=== PATIENT | male | born 1955 | race Caucasian/White ===

== ENCOUNTER 2017-09-12 17:41 | Inpatient (IN) | payer MEDICARE, BC, OTHER ==
[2017-09-12 18:07] LABS: #Basophils 0.1 thou/uL (0.0-0.2); #Eosinphils 0.1 thou/uL (0.0-0.7); #Lymphocytes 1.4 thou/uL (1.20-3.40); #Monocytes 0.9 thou/uL (0.11-0.59); %Basophils 0.5 % (0.0-1.0); %Eosinophils 0.8 % (0.0-10.0); %Lymphocytes 14.7 % (21.0-51.0); %Monocytes 9.2 % (0.0-10.0); %Neutrophils 74.8 % (42.0-75.0); Hemoglobin 17.2 g/dL (14.0-18.0); Mean Corpuscular HGB CONC 32.3 g/dL (32.0-36.0); Mean Corpuscular Hemoglobin 31.7 pg (27.0-31.0); Mean Platelet Volume 9.6 fL (7.4-10.4); Platelet Count 197 thou/uL (130-400); RBC Distribution Width 12.3 % (11.5-14.5); Red Blood Cell (RBC) Count 5.42 mill/uL (4.70-6.10); White Blood Cell (WBC) Count 9.4 thou/uL (4.8-10.8)
[2017-09-12 18:27] LABS: ALT (SGPT) 41 U/L (8-55); AST (SGOT) 28 U/L (5-34); Albumin 4.2 g/dL (3.4-4.8); Alkaline Phosphatase 83 U/L (40-150); Anion Gap 16 mmol/L (10-20); BUN (Urea Nitrogen) 25 mg/dL (8.4-25.7); Calc. Creatinine Clearance 0 mL/min (70-130); Calcium 9.9 mg/dL (7.8-10.44); Carbon Dioxide 32 mmol/L (23-31); Chloride 100 mmol/L (98-107); Estimated GFR-MDRD Greater than 90; Globulin 3.6 g/dL (2.4-3.5); Glucose 154 mg/dL (80-115); Potassium 4.1 mmol/L (3.5-5.1); Protein, Total 7.8 g/dL (5.8-8.1); Sodium 144 mmol/L (136-145)
[2017-09-12 18:52] LABS: Actual Bicarbonate (HCO3a) 30.8 mEq/L (22-26); Base Excess (BEa) 5.2 mEq/L (0 (+/-) 2.5); CO2 Tension 48.5 mmHg (35.0-45.0); O2 Tension (PaO2) 89.9 mmHg (80.0-100.0); pH, Arterial 7.42 (7.35-7.45)
[2017-09-12 18:53] LABS: Analyzer IN Cardio ER; Calcium, Ionized 1.2 mmol/L (1.12-1.30); Hematocrit-ABG 46.5 % (42.0-52.0); Puncture Site RRA
[2017-09-12 18:54] LABS: ALV-art Gradient 47.715 (0-20)
[2017-09-12] MEDS ORDERED: Acetaminophen 325 MG TAB PO PRN (22:13)
[2017-09-12] MEDS: Sodium Chloride 0.9% 1,000 ML IV SCH (23:14)
[2017-09-12 23:50] LABS: Bilirubin Negative (Negative); Blood, Urine Negative (Negative); Clarity CLEAR (Clear); Glucose, Urine (Dipstick) Negative (Negative); Leukocyte Negative (Negative); Nitrite Negative (Negative); Protein, Urine (Dipstick) Negative (Neg-Trace); Specific Gravity, Urine 1.016 (1.002-1.036); pH, Urine 6.5 (5.0-9.0)
[2017-09-12 23:52] LABS: Bacteria/HPF None Seen HPF (None Seen); Hyaline Casts/LPF 7-10 HYALINE CAST LPF (0-3 Hyaline); Pathc Cast-AUWi Flag 2.18 (0-2.49); RBC/HPF 0-3 HPF (0-3); Squamous Epithelial 0-3 HPF (0-3); WBC/HPF 0-3 HPF (0-3)
[2017-09-13] MEDS ORDERED: Bisacodyl 10 MG SUPP PR PRN (00:12)
--- NOTE | 2017-09-13 00:37 | HP ---
DATE OF ADMISSION: 09/13/2017 Patient was seen and examined on 09/13/2017 CHIEF COMPLAINT: Generalized weakness, dizziness, and shortness of breath. HISTORY OF PRESENT ILLNESS: Patient is a 62-year-old male with ALS was brought into the emergency ro om by his family with above complaints. Patient currently follows Dr. Sam Carpio. His neurologist is out of town. He also follows Dr. Cartagena who recently started him on metoprolol succinate 25 m g daily for palpitations. Event monitor was also placed. Patient currently lives at home with his family. He is wheelchair bound. He is currently on PEG tub e feeding. He has been recently using noninvasive positive pressure ventilation due to decreased kinza g capacity. The patient was brought into the emergency room with shortness of breath along with generalized weakn ess, lightheadedness, dizziness. His blood pressure at home was in 80s. There was no fever, chills, dysuria, hematuria, urgency, nausea, vomiting, diarrhea reported. He is tolerating PEG tube feeding . He is urinating well. In the emergency room, his initial vital signs showed temperature of 98.1 with pulse rate of 106, blo od pressure of 86/64, respiration of 28 with O2 saturation 97% on 1 liter nasal cannula. He was star amye on noninvasive positive pressure ventilation. He received 1 liter IV fluid in the emergency room . PAST MEDICAL HISTORY: 1. Amyotrophic lateral sclerosis. He is currently on riluzole. 2. Hypertension. 3. Palpitations recently started on metoprolol. 4. Seasonal allergies. 5. Psoriasis. 6. History of obstructive sleep apnea in the remote past. 7. History of renal calculi. PAST SURGICAL HISTORY: 1. Nasal surgery by Dr. Pedraza. 2. Neck surgery. 3. Colonoscopy. 4. PEG tube placement. ALLERGIES: Patient is allergic to SULFA. HOME MEDICATIONS: Patient is currently on Lexapro, riluzole, nebulizer, and baclofen as needed. Exa ct dosage is to be confirmed. SOCIAL HISTORY: Patient currently lives at home. He is retired. He is FULL CODE. DPOA is the spou se. FAMILY HISTORY: Father with hypertension and cancer. Mother with hypertension and blood clots. Hyp ertension in several family members. REVIEW OF SYSTEMS: The following complete review of systems was negative, unless otherwise mentioned in the HPI or below: Constitutional: Weight loss or gain, ability to conduct usual activities. Sk in: Rash, itching. Eyes: Double vision, pain. ENT/Mouth: Nose bleeding, neck stiffness, pain, te nderness. Cardiovascular: Palpitations, dyspnea on exertion, orthopnea. Respiratory: Shortness of breath, wheezing, cough, hemoptysis, fever, or night sweats. Gastrointestinal: Poor appetite, abdo miguel pain, heartburn, nausea, vomiting, constipation, or diarrhea. Genitourinary: Urgency, frequen cy, dysuria, nocturia. Musculoskeletal: Pain, swelling. Neurologic/Psychiatric: Anxiety, depressi on. Allergy/Immunologic: Skin rash, bleeding tendency. PHYSICAL EXAMINATION: VITAL SIGNS: As discussed above. His blood pressure improved to systolic 102 after IV fluids. GENERAL: Patient currently on noninvasive positive pressure ventilation. HEENT: Head atraumatic, normocephalic. Sclerae anicteric. Moist mucous membrane, no oral lesion. NECK: Supple, no JVD appreciated. No carotid bruit. LUNGS: Showed diminished air entry at bases, otherwise no rhonchi, wheezing, or rales. Lungs were s ymmetrical. HEART: S1, S2 present. Regular, tachycardic. No rubs or gallops appreciated. ABDOMEN: Soft. PEG tube noted. No rebound, guarding, no costovertebral angle tenderness. No eryth sarai around the PEG tube site. EXTREMITIES: No edema or calf tenderness. NEUROLOGIC: At baseline, no new focal deficit. PSYCHIATRIC: Alert, awake, oriented x3. SKIN: Warm and dry. LYMPH NODES: No palpable lymph nodes in the neck. LABORATORY FINDINGS: 1. EKG by my review showed sinus rhythm with lot of artifacts. 2. CBC showed WBC 9.4 with hemoglobin 17.2, platelet count 197. ABG showed pH 7.42 with pCO2 of 48. 5, pO2 of 89.2 with bicarbonate 31 on noninvasive positive pressure ventilation. 3. Chemistries showed sodium 144, potassium 4.1, chloride 100, bicarbonate 32, BUN 25, creatinine 0. 8. 4. Urinalysis showed hyaline cast. 5. Chest x-ray was not done. 6. Blood cultures have been sent. IMPRESSION: 1. Generalized weakness with lightheadedness, shortness of breath with hypotension. Please note nanci t patient was recently started on metoprolol due to palpitations. He also appears to be dehydrated w ith hyaline cast in the urinalysis. His blood pressure improved with IV hydration. We will continue IV fluids. He does not appear to be septic at this time. We will continue to monitor. 2. Acute hypoxic respiratory failure due to amyotrophic lateral sclerosis. We will continue noninva sive positive pressure ventilation. We will consult critical care, Dr. Gtz. 3. History of amyotrophic lateral sclerosis with questionable worsening. Dr. Agee has been notified from the emergency room. We will resume his home medications. 4. Depression. Patient denies any suicidal ideation. We will continue Lexapro. Plan of care was discussed with the patient and the family at the bedside, they stated understanding.
[2017-09-13 05:31] LABS: Anion Gap 10 mmol/L (10-20); BUN (Urea Nitrogen) 17 mg/dL (8.4-25.7); Calc. Creatinine Clearance 127 mL/min (70-130); Carbon Dioxide 34 mmol/L (23-31); Chloride 104 mmol/L (98-107); Estimated GFR-MDRD Greater than 90; Glucose 98 mg/dL (80-115); Magnesium 2.2 mg/dL (1.6-2.6); Potassium 3.6 mmol/L (3.5-5.1); Sodium 144 mmol/L (136-145); Troponin I 0.011 ng/mL (< 0.028)
[2017-09-13 05:34] LABS: Phosphorus 3.5 mg/dL (2.3-4.7)
[2017-09-13] MEDS: Famotidine 20 MG TAB PER TUBE SCH ×2 (08:26→20:28)
--- NOTE | 2017-09-13 09:36 | PDOC.PN ---
- Subjective Encounter Start Date: 09/13/17 Encounter Start Time: 09:34 Subjective: better, weakness improved, off BIPAP - Objective Resuscitation Status: Resuscitation Status FULL:Full Resuscitation MAR Reviewed: Yes Vital Signs & Weight: Vital Signs (12 hours) Temp Pulse Resp BP Pulse Ox 09/13/17 08:00 98.5 F 73 22 H 98 09/13/17 07:57 98.5 F 73 22 H 139/76 98 09/13/17 03:51 98.4 F 82 32 H 119/86 100 09/13/17 03:39 77 09/13/17 00:17 70 09/12/17 23:50 98.0 F 72 19 119/78 100 09/12/17 23:20 97.3 F L 75 24 H 137/83 97 09/12/17 22:51 98.0 F 70 22 H 97 Weight Weight 154 lb 11.2 oz I&O: 09/12/17 09/13/17 09/14/17 06:59 06:59 06:59 Intake Total 640 Output Total 650 Balance -10 Result Diagrams: 09/12/17 17:55 09/13/17 04:19 Phys Exam - Physical Examination Neck: no JVD Respiratory: clear to auscultation bilateral Cardiovascular: no significant murmur Gastrointestinal: soft, non-tender, positive bowel sounds Musculoskeletal: no edema Dx/Plan (1) Hypotension Status: Resolved Qualifiers: Hypotension type: unspecified hypotension type Qualified Code(s): I95.9 - Hypotension, unspecified (2) ALS (amyotrophic lateral sclerosis) Code(s): G12.21 - AMYOTROPHIC LATERAL SCLEROSIS Status: Acute (3) Hypercapnia Code(s): R06.89 - OTHER ABNORMALITIES OF BREATHING Status: Acute (4) HTN (hypertension) Code(s): I10 - ESSENTIAL (PRIMARY) HYPERTENSION Status: Acute Qualifiers: Hypertension type: essential hypertension Qualified Code(s): I10 - Essential (primary) hypertension - Plan cont off metoprolol -: bipap prn -: discussed with Dr Pierce * .
[2017-09-13] MEDS: Sodium Chloride 0.9% 1,000 ML IV SCH (14:10)
[2017-09-13 15:22] VITALS: BMI 20.9
--- NOTE | 2017-09-13 16:06 | CON ---
DATE OF CONSULTATION: 09/13/2017 SERVICE: Pulmonary Medicine. REASON FOR CONSULTATION: Amyotrophic lateral sclerosis. HISTORY OF PRESENT ILLNESS: The patient is a 62-year-old white male with past medical history significant for ALS and chronic respiratory failure. He follows with Kris in [facility]. He is in an ALS clinic. He has been set up with a home Trilogy ventilator. It is not quite certain what the settings are. He does have a battery pack, but at this point he has never really needed it outside when he was sleeping. He presented to the hospital after a dose of metoprolol was started in the outpatient setting. He started having some marginal blood pressures, dizziness, and shortness of breath. He presented to the Emergency Department, he was then subsequently tucked into the ICU after initial diagnostic evaluation really did not come up with much on BiPAP. He has been off of BiPAP all day and indicates to me that he has essentially returned to his usual state of health. He denies any current fevers , chills, nausea or vomiting. Otherwise, he was in his usual state of health. PAST MEDICAL HISTORY: 1. Amyotrophic lateral sclerosis. 2. Hypertension. 3. Psoriasis. 4. Allergic rhinitis. 5. Obstructive sleep apnea, status post ENT surgery in 2006. 6. History of nephrolithiasis. PAST SURGICAL HISTORY: 1. Nasal surgery. 2. Neck surgery. 3. Colonoscopy. 4. PEG tube placement. ALLERGIES: SULFA. MEDICATIONS: List of his inpatient medications were reviewed, but no updates were made at this time. SOCIAL HISTORY: Negative for alcohol, tobacco or illicit drug use. He is currently retired. He remains a FULL CODE. He denies exposure to chemicals, dust asbestos or tuberculosis. FAMILY HISTORY: Noncontributory. REVIEW OF SYSTEMS: General, head, ears, eyes, nose, throat, cardiovascular, respiratory, GI, , musculoskeletal, neurologic and skin is negative except as mentioned in the HPI. ALLERGIES: No known drug allergies. PHYSICAL EXAMINATION: VITAL SIGNS: Afebrile, pulse 81, blood pressure 164/85, respirations 22, saturation 92% on room air. GENERAL: The patient is awake and alert, no apparent distress. LUNGS: Decent air entry. There is no prolonged expiratory phase, wheezing, rhonchi or crackles. HEART: Normal rate and regular. ABDOMEN: Soft, nontender, and nondistended. Bowel sounds are positive. MUSCULOSKELETAL: No cyanosis or clubbing. No pitting in the bilateral lower extremities. NEUROLOGIC: Grossly nonfocal. LABORATORY DATA: WBC is 9.4, hemoglobin 17.2, and platelets 197,000. PH 7.42, pCO2 48, and pO2 90. Basic metabolic profile, magnesium, and phosphorus are unremarkable. Bicarbonate 34. Troponin negative x1. Liver function studies are also unremarkable. Urinalysis is negative. Blood cultures x2 are unremarkable. ASSESSMENT: 1. Amyotrophic lateral sclerosis. 2. Chronic hypercapnic respiratory failure. 3. Hypotension, resolved with holding metoprolol. PLAN: The patient can be discharged today or tomorrow based on their preference. I would like for them to call Kris right now and get an appointment with Neurology sometime this week or next week. I would also like for them to discuss the issues he has been having with respiratory therapy. He is having a hard time using his BiPAP machine because of aerophagia. We discussed multiple strategies for handling this. He can get a suction catheter that goes into the PEG tube to vent it at night. He can also decrease pressures by dialing in smaller tidal volume. I do not know what his current settings are on his machine, but he does have good resources at home that will allow him to trouble shoot this issue. He has actually has not discussed this with them to date. If he cannot get assistance from his established contacts, we can have him return to clinic to see me in the outpatient setting. Pulmonary or Critical Care will continue to follow along while he remains in house, but from a respiratory perspective, he is stable for transition out of the hospital. 70 minutes have been devoted to this patient in various activities. I personally reviewed all imaging studies and laboratory data noted within this document. For fifty percent of this time, I was interacting with the patient at the bedside or coordinating care with the care team. For the remainder of the time I was immediately available to the patient in the hospital unit. BRAD
[2017-09-13] MEDS ORDERED: cloNIDine 0.1 MG TAB PO PRN (18:24)
[2017-09-13] MEDS ORDERED: RILUZOLE 50 MG PO SCH (21:00)
[2017-09-13] MEDS ORDERED: Enoxaparin Sodium 40 MG/0.4 ML SYRINGE SC SCH (21:00)
--- NOTE | 2017-09-13 23:34 | CON ---
DATE OF CONSULTATION: 09/14/2017 REFERRING PHYSICIAN: Dr. Stanley Chowdhury. REASON FOR CONSULTATION: Amyotrophic lateral sclerosis. HISTORY OF PRESENT ILLNESS: Mr. Rodriguez is a pleasant 62-year-old male who has been cons ulted for evaluation of ALS. History is obtained from patient and his who was present at [facility]. Patient reports that he has a history of ALS that was diagnosed in 2014. He has been followed by neurologist in [place], [place]. He has gradually gotten worse over time and requires BiPAP sondra e for breathing support. He also has a feeding tube, which was placed in 2014 and over the past one year, he has to use feeding tube 100%. He reports that recently his cleaner housekeeping, Dr. Cartagena had started him on metoprolol 25 mg daily for SVT. He had presented to the emergency room yesterday afte r a complaint of fairly started having dizziness, lightheadedness, and increasing difficulty with yanet athing. On arrival to the emergency room, his blood pressure was noted to be very low as well as he had an increased respiration with low at 20% FVC. For this reason, he was being admitted for further treatment. I am being asked to further provide recommendations for patient with ALS. PAST MEDICAL HISTORY: Significant for ALS on riluzole, hypertension, palpitations, psoriasis, kidney stones. PAST SURGICAL HISTORY: Significant for nasal surgery, neck surgery, colonoscopy, PEG tube placement. CURRENT MEDICATIONS: Please review MAR. ALLERGIES: Include SULFA DRUGS. SOCIAL HISTORY: He is retired. He does not smoke or drink cigarettes, drink alcohol or use illicit drugs. He is . FAMILY HISTORY: Significant for father and mother with hypertension. REVIEW OF SYSTEMS: As mentioned above in the HPI is negative. PHYSICAL EXAMINATION: VITAL SIGNS: Blood pressure of 175/92, pulse of 76, temperature of 98.1, respirations are 20, O2 sat s of 94% on 2-liter nasal cannula. GENERAL: Cachectic appearing male in no apparent distress. RESPIRATORY: Clear to auscultation bilaterally. CARDIOVASCULAR: Regular rate and rhythm. NEUROLOGIC: Mental status: Patient is awake, alert, oriented x3. Speech and language: Labored spe ech with mild dysarthria. Cranial nerves: Pupils are 3 mm and reactive. Visual min are intact. Extraocular muscles are intact. No nystagmus is noted. Face is symmetric. Tongue and uvula are mi dline. There is a tongue fasciculations noted. Motor exam showed significant wasting of both upper and lower extremity muscles. He has 0/5 strength in both upper extremities proximally and 2/5 streng th in the distal hand muscles. His strength in both lower extremities is 4/5. LABORATORY DATA: Reviewed, which included CBC, CMP, ABG which is significant for bicarbonate of 34. His ABG showed pH of 7.42, pCO2 of 48.5, pO2 of 89.9, bicarbonate of 30.8. IMPRESSION: 1. Amyotrophic lateral sclerosis. 2. Hypertension, likely medication-induced. ASSESSMENT AND PLAN: Mr. Rodriguez is a pleasant 62-year-old male with history of amyotrop hic lateral sclerosis presented with the episodes of dizziness, lightheadedness, and increasing diffi culty with breathing. His blood pressure was noted to be very low on arrival to the emergency room, which is likely medication-induced. This is probably the cause for his lightheadedness and dizziness . His breathing has worsened over the past few months, according to him, which is usually the progre ssion of the amyotrophic lateral sclerosis. I have discussed with the patient that unfortunately the only available options are CPAP machine or tracheostomy. I have explained that the tracheostomy may help with breathing for some time, but eventually amyotrophic lateral sclerosis thus tends to progre ss and affect the breathing without much help from the tracheostomy. I have advised him that he need s to discuss this with his honey processor as well as a neurologist further and discussed with his fami ly to see whether he should proceed with the tracheostomy. There is no further neurological workup n eeded from my standpoint. Thank you for consultation.
[2017-09-14 08:05] VITALS: BP 162/102; TEMP 98
[2017-09-14] MEDS: Famotidine 20 MG TAB PER TUBE SCH (08:29)
[2017-09-14] MEDS ORDERED: RILUZOLE 50 MG PO SCH (09:00)
[2017-09-14] MEDS ORDERED: Escitalopram Oxalate 10 mg Tablet PO SCH (09:00)
--- NOTE | 2017-09-14 09:23 | DIS ---
TRANSFER OF CARE NOTE PRIMARY CARE PROVIDER: Dr. Sam Carpio FINAL DIAGNOSES: 1. Acute respiratory failure with hypoxia. 2. Hypotension, resolved. 3. Amyotrophic lateral sclerosis. 4. Hypertension. 5. Hypercapnia. DISCHARGE MEDICATIONS: Same as home medicines except metoprolol has been held, citalopram 10 mg a da y, Riluzole 50 mg twice a day, simethicone 60 mg p.o. daily. ALLERGIES: TRIMETHOPRIM, SULFA, POLYMYXIN B, BACITRACIN. CODE STATUS: FULL. PENDING AT THE TIME OF DISCHARGE: Nothing. HOSPITAL COURSE: The patient admitted through [facility] with generalized weakn ess, dizziness, shortness of breath. In the emergency room, he was found to have blood pressure 80/6 0 was given IV fluids. He had recently been put on metoprolol for palpitations. He was seen in cons ultation by Dr. Shiraz Pierce, Pulmonology, Dr. Minerva Agee. Dr. Pierce agreed he was stable for di scharge at this time after stopping the metoprolol and receiving fluids. Dr. Agee recommended the de tient discuss need for a tracheostomy. PERTINENT LABORATORY: During his hospital stay, comp metabolic profile positive only for a CO2 of 32 and 34, arterial blood gas showed a normal pH of 742 with CO2 retention of 48.5. CBC was normal exc ept for a mild macrocytosis. Urine was clear. PHYSICAL EXAMINATION: CHEST: Clear to auscultation and percussion. HEART: Regular rate and rhythm. VITAL SIGNS: Blood pressure ranges from 139/76 to somewhat higher. His O2 saturation is currently 9 5 on room air when he is awake. It drops, we will need to sleep, he sleeps with BiPAP. PROCEDURES: No procedures done. He is being discharged for follow up with his PCP and his neurologist at [facility].
== END 2017-09-14 12:49 | disposition home or self-care (01) | DRG 189 ==
LOC: ERS 17:41 → IMCU/EMU 20:18
PROVIDERS: ADMIT Internal Medicine; ATTEND Internal Medicine
DX: J96.01 Acute respiratory failure with hypoxia (principal); G12.21 Amyotrophic lateral sclerosis; J96.12 Chronic respiratory failure with hypercapnia; Z93.1 Gastrostomy status; I10 Essential (primary) hypertension; F32.9 Major depressive disorder, single episode, unspecified; I95.2 Hypotension due to drugs; T44.7X5A Adverse effect of beta-adrenoreceptor antagonists, initial encounter; F45.8 Other somatoform disorders
CPT/HCPCS: 36415; 80048; 80053; 81001; 82805; 83735; 84100; 84484; 85025; 87040; 93005; 94660; 94760; 96360

== ENCOUNTER 2017-09-17 15:05 | Emergency (ER) | payer MEDICARE, BC, OTHER | END 2017-09-17 15:25 | disposition home or self-care (01) | LOC: SCSER 15:05 | DX: L03.114 Cellulitis of left upper limb (principal); L03.113 Cellulitis of right upper limb ==

== ENCOUNTER 2017-10-09 13:45 | Outpatient (CLI) | payer MEDICARE, BC, OTHER | END 2017-10-09 13:46 | disposition home or self-care (01) | LOC: BICRAD 13:45 | PROVIDERS: ATTEND Internal Medicine Gastroenterology | DX: R14.0 Abdominal distension (gaseous) (principal); R19.8 Other specified symptoms and signs involving the digestive system and abdomen | CPT/HCPCS: 74022 ==